=== PATIENT | male | born 1950 | race Caucasian/White ===

== ENCOUNTER 2022-09-06 17:22 | Emergency (ER) | payer OTHER, BC ==
[2022-09-06 18:34] VITALS: BP 144/85; PULSE 63; RESP 18; TEMP 97.8; BMI 19.8
== END 2022-09-06 21:04 | disposition home or self-care (01) ==
LOC: JER 17:22
DX: J01.90 Acute sinusitis, unspecified (principal)
CPT/HCPCS: 0241U-QW; 99283-25

== ENCOUNTER 2023-09-01 04:42 | Day surgery (SDC) | payer OTHER, BC ==
[2023-08-30 11:24] VITALS: BMI 20.2
[2023-09-01 11:29] VITALS: TEMP 97.5
[2023-09-01 12:04] VITALS: BP 149/85; PULSE 59; RESP 16
== END 2023-09-01 12:20 | disposition home or self-care (01) ==
LOC: JASU-ENDO 04:42
PROVIDERS: ATTEND Internal Medicine Gastroenterology
PROC: 0DB68ZX Excision of Stomach, Via Natural or Artificial Opening Endoscopic, Diagnostic (ICD-10-PCS; 2023-09-01)
PROC: 0DB78ZX Excision of Stomach, Pylorus, Via Natural or Artificial Opening Endoscopic, Diagnostic (ICD-10-PCS; 2023-09-01)
PROC: 0DJD8ZZ Inspection of Lower Intestinal Tract, Via Natural or Artificial Opening Endoscopic (ICD-10-PCS; principal; 2023-09-01 11:00)
DX: Z12.11 Encounter for screening for malignant neoplasm of colon (principal); K64.8 Other hemorrhoids; K59.89 Other specified functional intestinal disorders; K29.50 Unspecified chronic gastritis without bleeding
CPT/HCPCS: 43239; G0121; 88305-TC; 88342-TC